=== PATIENT | female | born 1985 | race Caucasian/White ===

== ENCOUNTER → 2017-05-04 18:52 | Observation (INO) ==
--- NOTE | 2017-05-04 16:07 | OB/GYN History & Physical ---
Date of Encounter: 05/04/17 Time of Encounter: 16:04 Assessment and Plan (1) 35 weeks gestation of Current visit: Yes Status: Acute NST reactive. (2) Uterine contractions during Current visit: Yes Status: Acute Will continue to monitor and repeat SVE in 1-2 hours. Disposition pending repeat exam. Pt to PO hydrate as she is declining IV fluids. Addendum 1842: Repeat SVE with no change. Pt requesting discharge home. Labor precautions given. History of Present Illness Chief complaint: contractions HPI: Ms. Guzman is a 31 year old female presenting at 35w5d with c/o contractions for the last few days that have gotten longer, stronger, and closer together since her appointment this am. She denies LOF. She does note some spotting since having an exam in the office earlier today. Good FM. No other complaints. She was 5cm/90% in the office today and was given Celestone for lung maturity. Pt had some contractions a few weeks ago while on a trip and was in the hospital. She had a negative GBS test at that time. Of note , pt has a plan. Blood type B positive. Rubella immune. Serologies negative. Past Med Surg Social Fam HX - Past Medical History Medical history: no medical history Psychiatric history: no psych history - Past Surgical History Surgical History: other - Social History Smoking Status: Never smoker Smokeless Tobacco Status: No Alcohol use: none Drug use: none - Family History Mother Age: 55 Living Status: Still Living Hx Family Cardiac Disorders: Yes (HTN) Obstetrical History - Pregnancies : 2 Para: 1 Term: 1 : 0 Ab's: 0 Livin - History/Complications History/Complications: history of hemorrhage Medications and Allergies Vit/Iron Fumarate/FA [ Tablet] 1 tab PO DAILY 05/04/17 [History ] Allergies Penicillins Allergy (Verified 05/04/17 16:05) Rash Review of System OB All systems PM: reviewed and no additional remarkable complaints except as stated Exam - Constitutional Constitutional: well developed, well nourished, no acute distress - HEENT HEENT: Mucus Membranes Moist - Lungs Respiratory exam: CTAB - Cardiovascular Cardiovascular exam: RRR - Abdomen Abdomen: Present: gravid, non tender - Extremities Extremities exam: normal inspection - Vagina Vagina: Present: normal moisture - Cervix Dilation: 5 Effacement: 90 Station: 0 - Anus/Rectum Anus/Rectum: Present: normal perianal skin Results All other labs normal. - VTE Reasons for not Prescribing Prophylaxis: Treatment not Indicated - Low risk for VTE
== END | disposition home or self-care (01) ==
LOC: 1NENULAB
PROVIDERS: ADMIT Obstetrics & Gynecology; ATTEND Obstetrics & Gynecology

== ENCOUNTER 2017-05-21 18:12 | Inpatient (IN) ==
--- NOTE | 2017-05-21 18:10 | OB/GYN History & Physical ---
Date of Encounter: 05/21/17 Time of Encounter: 18:07 Assessment and Plan (1) Spontaneous rupture of membranes Current visit: Yes Status: Acute Nubain prn epidural if/when desired Anticipate vaginal delivery (2) 38 weeks gestation of Current visit: Yes Status: Acute History of Present Illness Chief complaint: SROM HPI: Ms. Guzman is a 31 year old female at 38.1 weeks gestation who presents with spontaneous rupture of membranes. Her has been complicated by threatened labor in the third trimester. Denies dizziness, blurred vision, headache. Reports loss of fluid and vaginal bleeding. Reports good movement. Labs: GBS -, rubella immune, all other serologies normal Blood type: B+ Past Med Surg Social Fam HX - Past Medical History Medical history: no medical history Psychiatric history: no psych history - Past Surgical History Surgical History: other - Social History Smoking Status: Never smoker Smokeless Tobacco Status: No Alcohol use: none Drug use: none - Family History Mother Living Status: Still Living Hx Family Cardiac Disorders: Yes (HTN) Obstetrical History - Pregnancies : 2 Para: 1 Term: 1 : 0 Ab's: 0 Livin Medications and Allergies Vit/Iron Fumarate/FA [ Tablet] 1 tab PO DAILY 05/04/17 [History ] Acetaminophen [Tylenol] 500 mg PO Q6HR PRN 05/21/17 [History] 3 Allergy/AdvReac Type Severity Reaction Status Date / Time Penicillins Allergy Rash Verified 05/04/17 16:05 Review of System OB - Constitutional Constitutional ROS IM: as per HPI Exam - Constitutional Constitutional: well developed, well nourished, no acute distress, average body habitus - HEENT HEENT: Normocephaly, Mucus Membranes Moist - Neck Neck exam: supple - Lungs Respiratory exam: CTAB - Cardiovascular Cardiovascular exam: +S1, +S2 - Abdomen Abdomen: Present: bowel sounds normal, gravid, non tender - Extremities Extremities exam: normal capillary refill, normal inspection, warm Results All other labs normal. - VTE Reasons for not Prescribing Prophylaxis: Treatment not Indicated - Low risk for VTE
[~2017-05-21 18:12] MED LIST: Famotidine 20 MG/2 ML VIAL IVP PRN; Lidocaine 1% 20 ML MDV ID PRN; Naloxone 0.4 MG/ML INJ IVP PRN; Ondansetron 4 MG/2 ML VIAL IVP PRN
[2017-05-21] MEDS ORDERED: *HR* Nalbuphine 20 MG/ML AMPUL IVP PRN (18:13)
--- NOTE | 2017-05-21 18:18 | OB/GYN History & Physical ---
Date of Encounter: 05/21/17 Time of Encounter: 18:14 Assessment and Plan (1) Uterine contractions Current visit: Yes Status: Acute Admit to labor and delivery for active labor GBS negative Patient may have epidural and/or nubain for pain control upon request Consider pitocin and/or AROM for augmentation Anticipate vaginal delivery POC per consult with Dr Ventura. History of Present Illness Chief complaint: Leaking fluid and contractions HPI: Ms. Guzman is a 31 year old female at 38 weeks and 1 day that presents to labor and delivery with c/o fluid gush at 1600 and contractions that have been regular since this morning. She states that she has been 5cm dilated for 2 weeks. She has a history of an LGA infant in a previous with no delivery complications, but does have a history of a PPH. She has had steroids this for labor. Her GBS is negative. She is HIV negative, Hep B negative, RPR negative, Varicella immune, and Rubella immune. Her blood type is B positive. Her most recent ultrasound was at 35 weeks on 05/04 and showed an AGA fetus at 2882 grams and adequate fluid with an SHAKIRA of 16.8. Past Med Surg Social Fam HX - Past Medical History Medical history: no medical history Psychiatric history: no psych history - Past Surgical History Surgical History: other - Social History Smoking Status: Never smoker Smokeless Tobacco Status: No Alcohol use: none Drug use: none - Family History Mother Living Status: Still Living Hx Family Cardiac Disorders: Yes (HTN) Obstetrical History - Pregnancies : 2 Para: 1 Term: 1 : 0 Ab's: 0 Livin Medications and Allergies Vit/Iron Fumarate/FA [ Tablet] 1 tab PO DAILY 05/04/17 [History ] Acetaminophen [Tylenol] 500 mg PO Q6HR PRN 05/21/17 [History] 3 Allergy/AdvReac Type Severity Reaction Status Date / Time Penicillins Allergy Rash Verified 05/04/17 16:05 Review of System OB All systems PM: reviewed and no additional remarkable complaints except as stated Exam - Constitutional Constitutional: well developed, well nourished, no acute distress, average body habitus - HEENT HEENT: Normocephaly, Mucus Membranes Moist - Neck Neck exam: full ROM - Lungs Respiratory exam: CTAB - Cardiovascular Cardiovascular exam: RRR, +S1, +S2 - Breasts Breast: bilateral: normal - Abdomen Abdomen: Present: bowel sounds normal, gravid, non tender - Extremities Extremities exam: normal capillary refill, normal inspection, radial pulses palpable and symmetrical Deep Tendon Reflex Grade: 1+ Diminished - Vulva Vulva: bilateral: normal - Vagina Vagina: Present: normal moisture - Cervix Dilation: 6 Effacement: 100 Station: 0 - Uterus Uterus exam: Present: normal size (FHTs 150 with moderate variability and 15 x 15 accels and one variable decel during vaginal exam. Contactions palpate moderate and on TOCO every3-4 minutes lasting 60 seconds. Uterus palpates soft between contractions. ), normal contour - Anus/Rectum Anus/Rectum: Present: normal perianal skin Results All other labs normal. - VTE Reasons for not Prescribing Prophylaxis: Treatment not Indicated - Low risk for VTE
[2017-05-21 18:54] LABS: Basophils # 0.1 K/mcL (0.0-0.2); Basophils % 0.6 %; Eosinophils # 0.2 K/mcL (0.0-0.6); Hematocrit 37.2 % (35.3-44.9); Hemoglobin 12.9 g/dL (11.5-15.4); Immature Granulocytes % 1.4 % (0-4); Lymphocytes # 1.9 K/mcL (0.6-4.6); Lymphocytes % 17.6 %; Mean Corpuscular HGB Conc 34.7 g/dL (31.6-35.5); Mean Corpuscular Hemoglobin 31.9 pg (28.0-33.3); Mean Corpuscular Volume 91.9 fL (83.0-100.0); Mean Platelet Volume 9.6 fL (9.4-12.4); Monocytes # 0.7 K/mcL (0.0-1.3); Monocytes % 6.2 %; Neutrophils # 7.7 K/mcL (1.6-8.9); Platelet Count 198 K/mcL (140-400); Red Blood Count 4.05 M/mcL (3.82-4.97); Red Cell Distribution Width 12.5 % (11.5-14.5); Segmented Neutrophils % 72.2 %
--- NOTE | 2017-05-21 20:11 | OB Labor Progress Note ---
Date of Encounter: 05/21/17 Time of Encounter: 20:09 Labor Progress Note - Subjective Subjective: Patient comfortable in bed. States labor is tolerable - Vital Signs Vital Signs: VSS - Cervix Cervix: 7-8/100/0 - Heart Tones Heart Tones: 140's moderate variability with 15 x 15 accels with no decels. - [place]: Contractions palpated every 3-4 minutes moderate to palpation. - Interventions Interventions: AROM for scant amount of clear fluid. patient and fetus tolerated well. - Plan Plan: Continue routine labor management Consider pitocin if not making adequate cervical change May use intermittent monitoring if patient requests per policy Anticipate vaginal delivery POC per consult with Dr Ventura.
[2017-05-21] MEDS ORDERED: Oxytocin 20 units/ LR 1000 mL 20 UNIT/1,000 ML BAG IVC ONE ×2 (21:06→23:17)
--- NOTE | 2017-05-21 21:09 | Anesthesia Evaluation PreOp ---
Date of Encounter: 05/21/17 Time of Encounter: 21:07 - Past History Planned Operation: Vaginal delivery- services not requested. Cardiac History: Denies any Significant Hx Pulmonary History: Denies Any Significant HX SENIOR RADIATION THERAPIST History: Denies Any Significant HX Other Medical History: Denies Any Significant HX Anesthesia History: No Prior Anesthetic Complications : Yes Alcohol Use: none Drug use: none Medications and Allergies Vit/Iron Fumarate/FA [ Tablet] 1 tab PO DAILY 05/04/17 [History ] Acetaminophen [Tylenol] 500 mg PO Q6HR PRN 05/21/17 [History] 3 Allergy/AdvReac Type Severity Reaction Status Date / Time Penicillins Allergy Rash Verified 05/04/17 16:05 Anesthesia Results - Labs 05/21/17 18:41 Anesthesia Exam BP 106/69 P 79 T 97.4 Height: 5'5" Weight: 57.5kg NPO (# of Hours): 4 Pain Scale: 6 Pain Scale Used: Mason (Faces) - HEENT Pupil (Motor): Pupils equal Mallampati: II Teeth: Normal Oral Opening: Greater than 3 - SENIOR RADIATION THERAPIST LOC: Oriented SENIOR RADIATION THERAPIST Motor: Normal RUE, Normal LUE, Normal RLE, Normal LLE, Normal Face SENIOR RADIATION THERAPIST Sensory: Normal: RUE, LUE, RLE, LLE, Face - Cardiac Rhythm: Regular Murmur: None JVD: No Carotid Bruit: No - Pulmonary Breath Sounds: bilateral Clear Respiratory Effort: Symmetrical Anesthesia Assess/Plan ASA Score: 2 Modified [place] Scale for Level of Consciousness: Cooperative, oriented, and tranquil Anesthetic Plan: Precautions Autologous Blood: No Monitoring Plan: Standard Monitors Recovery Plan: Other
[2017-05-21] MEDS ORDERED: Lidocaine 1% 20 ML MDV ONE (21:29)
[2017-05-21] MEDS ORDERED: Ringers Solution, Lactated 1,000 ML ONE (22:08)
[2017-05-21] MEDS ORDERED: MetroNIDAZOLE 500 MG/100 ML 500 MG/100 ML BAG IVPB ONE (22:38)
--- NOTE | 2017-05-21 22:50 | OB/GYN Procedure Note ---
Delivery - Delivery Date: 05/21/17 Provider: Tamika Barajas Intrapartum events: none Delivery induction: none Delivery augmentation: rupture of membranes Delivery monitor: external FHT, external uterine (intermittent monitoring) Anesthesia: none Estimated Blood Loss: 800 - (s) Infant A Infant Delivery Date: 05/21/17 Delivery Time: 21:49 Presentation: vertex Position: OA Route of delivery: Gender: Female Viability: Viable Pounds: 7 Ounces: 5 Weight Gram: 3320 kg at 1 minute: 8 at 5 mins: 9 Shoulder Dystocia: encountered Shoulder Dystocia Maneuvers: Saadia maneuver, suprapubic pressure Placenta: spontaneous, uterine exploration, retained Cord: 3 umbilical vessels - Repair Episiotomy: none Laceration Description: Periurethral (hemostatic) - Complications Delivery complications: hemorrhage, uterine atony, retained placenta (removed by Dr Ventura with uterine exploration. ) Delivery comments: Patient progressed to complete and began spontaneously pushing to of viable , vigorous female infant in the OA over hemostatic bilateral periurethral lacerations. 41 second shoulder dystocia encountered with release of the anterior shoulder with suprapubic pressure and Saadia. No nuchal cord and no meconium stained fluid encountered. placed on maternal abdomen. Cord double clamped and cut after 2 minutes of age. Apgars were 8 and 9 at one and five minutes of age respectively. Infant moving both arms independently; no deficits noted upon nursing exam. Placenta delivered spontaneously and appeared grossly intact. Uterine atony and large gush of blood noted immediately after delivery of placenta. Bimanual massage, IV pitocin, Methergine IM, Cytotec AR given; atony did not resolve. Dr Ventura called to delivery room while cytotec was being opened by RN. Uterine exploration completed by Dr Ventura and a small piece of retained placenta was removed. Uterine atony resolved with bimanual massage. EBL 800mL. Uterus firm and 2 fingerbreadths below the umbilicus when this CNM left room. and patient stable in recovery. - Disposition Mom disposition: stable in LDR disposition: stable in LDR
[2017-05-21] MEDS ORDERED: Methylergonovine 0.2 MG/ML AMPUL IM ONE (23:07)
[2017-05-21] MEDS ORDERED: miSOPROStol 100 MCG TABLET RC STA (23:07)
[2017-05-22] MEDS ORDERED: Oxytocin 20 units/ LR 1000 mL 20 UNIT/1,000 ML BAG IVC ONE (00:04)
[2017-05-22] MEDS ORDERED: Oxytocin 20 units/ LR 1000 mL 20 UNIT/1,000 ML BAG IVC SCH (00:04)
[2017-05-22] MEDS ORDERED: Ibuprofen 600 MG TABLET PO PRN (00:04)
[2017-05-22] MEDS ORDERED: Acetaminophen 325 MG TABLET PO PRN (00:04)
[2017-05-22 07:32] LABS: Basophils # 0.1 K/mcL (0.0-0.2); Basophils % 0.4 %; Eosinophils # 0.2 K/mcL (0.0-0.6); Eosinophils % 1.1 %; Hematocrit 28.6 % (35.3-44.9); Immature Granulocytes % 0.9 % (0-4); Lymphocytes # 1.7 K/mcL (0.6-4.6); Lymphocytes % 12.1 %; Mean Corpuscular HGB Conc 35.7 g/dL (31.6-35.5); Mean Corpuscular Hemoglobin 32.1 pg (28.0-33.3); Mean Corpuscular Volume 89.9 fL (83.0-100.0); Mean Platelet Volume 9.4 fL (9.4-12.4); Monocytes # 0.9 K/mcL (0.0-1.3); Monocytes % 6.2 %; Platelet Count 165 K/mcL (140-400); Red Blood Count 3.18 M/mcL (3.82-4.97); Red Cell Distribution Width 12.4 % (11.5-14.5); Segmented Neutrophils % 79.3 %
[2017-05-22 07:34] LABS: Hemoglobin 10.2 g/dL (11.5-15.4)
[2017-05-22] MEDS ORDERED: Prenatal Vit/FA 1 EACH TABLET PO SCH (09:00)
[2017-05-22] MEDS ORDERED: NON-FORMULARY MEDICATION 1 EACH EACH (Prenatal Vit/Iron Fumarate/Fa [Prenatal Tablet] 1 TA PO SCH (09:00)
--- NOTE | 2017-05-22 10:00 | Discharge Summary ---
Date of Encounter: 05/22/17 Time of Encounter: 09:57 - Discharge Diagnosis (1) Vaginal delivery Priority: Primary Status: Acute Comments: Pt states feels well meeting all milestones. . desires discharge. (2) Anemia, Priority: Secondary Status: Acute - Discharge Medications Prescriptions: Ibuprofen [Motrin] 600 mg PO Q6HR PRN #60 tab PRN Reason: Cramping Docusate [Colace] 100 mg PO BID #60 Ferrous Sulfate [Iron] 325 mg PO DAILY #60 tablet Home Medications: Vit/Iron Fumarate/FA [ Tablet] 1 tab PO DAILY 05/04/17 [History ] Acetaminophen [Tylenol] 650 mg PO Q6HR PRN tab 05/22/17 [Rx] Docusate [Colace] 100 mg PO BID #60 05/22/17 [Rx] Ferrous Sulfate [Iron] 325 mg PO DAILY #60 tablet 05/22/17 [Rx] Ibuprofen [Motrin] 600 mg PO Q6HR PRN #60 tab 05/22/17 [Rx] Vit/FA 1 each PO DAILY tab 05/22/17 [Rx] Allergies/Adverse Reactions: 3 Allergy/AdvReac Type Severity Reaction Status Date / Time Penicillins Allergy Rash Verified 05/04/17 16:05 Data Procedures and tests throughout hospitalization: Laboratory Tests 05/21/17 05/22/17 18:41 07:12 WBC 10.7 13.9 H RBC 4.05 3.18 L Hgb 12.9 10.2 L D Hct 37.2 28.6 L MCV 91.9 89.9 MCH 31.9 32.1 MCHC 34.7 35.7 H RDW 12.5 12.4 Plt Count 198 165 MPV 9.6 9.4 Immature Gran % 1.4 0.9 Seg Neutrophils % 72.2 79.3 Lymphocytes % 17.6 12.1 Monocytes % 6.2 6.2 Eosinophils % 2.0 1.1 Basophils % 0.6 0.4 Neutrophils # 7.7 11.0 H Lymphocytes # 1.9 1.7 Monocytes # 0.7 0.9 Eosinophils # 0.2 0.2 Basophils # 0.1 0.1 Labs on day of discharge: Labs from last 24 hours 05/22/17 05/21/17 07:12 18:41 WBC 13.9 H 10.7 RBC 3.18 L 4.05 Hgb 10.2 L D 12.9 Hct 28.6 L 37.2 MCV 89.9 91.9 MCH 32.1 31.9 MCHC 35.7 H 34.7 RDW 12.4 12.5 Plt Count 165 198 MPV 9.4 9.6 Immature Gran % 0.9 1.4 Seg Neutrophils % 79.3 72.2 Lymphocytes % 12.1 17.6 Monocytes % 6.2 6.2 Eosinophils % 1.1 2.0 Basophils % 0.4 0.6 Neutrophils # 11.0 H 7.7 Lymphocytes # 1.7 1.9 Monocytes # 0.9 0.7 Eosinophils # 0.2 0.2 Basophils # 0.1 0.1 Date of admission: 05/21/17 18:12 Primary care physician: PAUL JACOBSEN Consults: 05/22/17 00:04 Consult to [employer] [facility] [CONS] Routine Comment: Vaginal delivery, consult needed Discharging clinician: Megan Dumont Anticipated date of discharge: 05/22/17 - Patient Status Disposition: Home, Self-Care Condition: Good Functional capacity at discharge: independent ambulation Overall status at discharge: patient is back to baseline - Discharge Instructions Follow Up With: NONE,PCP [Primary Care Provider] - Jocy Gould DO [Partnered Physician] - - Diet and Activity Activity: resume usual activities as tolerated Diet: regular diet Hospital Course Reason for admission: IUP at term Delivery: Episiotomy: none Laceration: other (periureteral) Other procedures: none complications: none Discharge diagnosis: IUP at term delivered baby: female Hospital course: Delivery - Delivery Date: 05/21/17 Provider: Tamika Barajas Intrapartum events: none Delivery induction: none Delivery augmentation: rupture of membranes Delivery monitor: external FHT, external uterine (intermittent monitoring) Anesthesia: none Estimated Blood Loss: 800 - Infant (s) A Delivery Date: 05/21/17 Infant Delivery Time: 21:49 Presentation: vertex Position: OA Route of delivery: Gender: Female Viability: Viable Pounds: 7 Ounces: 5 Weight Gram: 3320 kg at 1 minute: 8 at 5 mins: 9 Shoulder Dystocia: encountered Shoulder Dystocia Maneuvers: Saadia maneuver, suprapubic pressure Placenta: spontaneous, uterine exploration, retained Cord: 3 umbilical vessels - Repair Episiotomy: none Laceration Description: Periurethral (hemostatic) - Complications Delivery complications: hemorrhage, uterine atony, retained placenta (removed by Dr Ventura with uterine exploration. ) Delivery comments: Patient progressed to complete and began spontaneously pushing to of viable , vigorous female in the OA over hemostatic bilateral periurethral lacerations. 41 second shoulder dystocia encountered with release of the anterior shoulder with suprapubic pressure and Saadia. No nuchal cord and no meconium stained fluid encountered. Infant placed on maternal abdomen. Cord double clamped and cut after 2 minutes of age. Apgars were 8 and 9 at one and five minutes of age respectively. moving both arms independently; no deficits noted upon nursing exam. Placenta delivered spontaneously and appeared grossly intact. Uterine atony and large gush of blood noted immediately after delivery of placenta. Bimanual massage, IV pitocin, Methergine IM, Cytotec HI given; atony did not resolve. Dr Ventura called to delivery room while cytotec was being opened by RN. Uterine exploration completed by Dr Ventura and a small piece of retained placenta was removed. Uterine atony resolved with bimanual massage. EBL 800mL. Uterus firm and 2 fingerbreadths below the umbilicus when this CNM left room. Infant and patient stable in recovery. - Disposition Mom disposition: stable in PP and appropriate for discharge Time Attestation: Total time spent providing and/or coordinating discharge services: Time Spent: Less than 30 minutes Exam - Constitutional Vitals: Temp Pulse Resp BP Pulse Ox 98.6 F 91 16 114/76 100 05/22/17 07:15 05/22/17 07:15 05/22/17 07:15 05/22/17 07:15 05/22/17 02:40 General appearance IM: A&O X 3 - Respiratory Respiratory exam: Present: CTAB - Cardiovascular Cardiovascular exam IM: Present: RRR - GI/Abdominal GI/Abdominal exam IM: normal bowel sounds, soft - Uterine Tone: Firm Uterus Position: 2 Fingers Below Umbilicus - Extremities Exam Extremities exam IM: Present: normal capillary refill, normal inspection - Neurological Exam Neurological exam: normal gait, oriented X3 - Psychiatric Additional comments: Reports good mood
[2017-05-22 21:53] VITALS: BP 104/70
[2017-05-22] MEDS ORDERED: Methylergonovine 0.2 MG/ML AMPUL IM ONE (23:19)
[2017-05-22] MEDS ORDERED: miSOPROStol 100 MCG TABLET PO ONE (23:19)
== END 2017-05-22 23:20 | disposition home or self-care (01) | DRG 767 ==
LOC: 1NENULAB → 1NENUOBS 05-22 00:04
PROVIDERS: ADMIT Obstetrics & Gynecology; ATTEND Obstetrics & Gynecology